=== PATIENT | male | born 2000 | race Hispanic/Latino ===

== ENCOUNTER 2018-04-11 14:33 | Observation (INO) | payer SELFPAY ==
[~2018-04-11 14:33] MED LIST: Dexamethasone 20 MG/5 ML VIAL ONE; Glycopyrrolate 0.2 MG/ML 5 ML SYRINGE ONE; Ketorolac Tromethamine 30 MG/ML VIAL ONE; Lidocaine 1% PF 5 ML VIAL ONE; Ondansetron PF 4 MG/2 ML Vial ONE; PROPOFOL 200 MG/20 ML VIAL ONE; Succinylcholine Chloride 20 MG/ML 10 ml SYRINGE FS ONE
[2018-04-11] MEDS ORDERED: Dicyclomine 20 MG TAB ONE (15:02)
[2018-04-11 15:06] LABS: #Eosinphils 0.1 thou/uL (0.0-0.7); #Lymphocytes 1.2 thou/uL (1.20-3.40); #Monocytes 0.4 thou/uL (0.11-0.59); %Basophils 0.2 % (0.0-1.0); %Eosinophils 0.4 % (0.0-10.0); %Lymphocytes 7.4 % (28.0-48.0); %Monocytes 2.3 % (0.0-4.0); %Neutrophils 89.7 % (31.0-61.0); Hemoglobin 17.2 g/dL (14.0-18.0); Mean Corpuscular HGB CONC 32.5 g/dL (32.0-36.0); Mean Corpuscular Volume 86.2 fL (78.0-98.0); Mean Platelet Volume 7.2 fL (7.4-10.4); Platelet Count 278 thou/uL (130-400); RBC Distribution Width 12.9 % (11.5-14.5); Red Blood Cell (RBC) Count 6.13 mill/uL (4.00-5.20); White Blood Cell (WBC) Count 16.7 thou/uL (4.8-10.8)
[2018-04-11 15:24] LABS: ALT (SGPT) 33 U/L (8-55); AST (SGOT) 26 U/L (10-45); Albumin 4.3 g/dL (3.5-5.0); Alkaline Phosphatase 90 U/L (Less than 750); Anion Gap 17 mmol/L (10-20); BUN (Urea Nitrogen) 9 mg/dL (8.4-21.0); Bilirubin, Total 0.4 mg/dL (0.2-1.2); Calc. Creatinine Clearance 0 mL/min (70-130); Calcium 9.7 mg/dL (7.8-10.44); Carbon Dioxide 20 mmol/L (22-29); Chloride 103 mmol/L (98-107); Estimated GFR-MDRD Greater than 90; Globulin 3.3 g/dL (2.4-3.5); Glucose 110 mg/dL (70-105); Lipase 29 U/L (8-78); Protein, Total 7.6 g/dL (6.0-8.3); Sodium 136 mmol/L (136-145)
[2018-04-11] MEDS ORDERED: Ondansetron PF 4 MG/2 ML Vial ONE (15:46)
--- NOTE | 2018-04-11 16:00 | CT ---
CT ABDOMEN AND PELVIS WITH IV CONTRAST: Date: 04/11/18 HISTORY: 17-year-old male with abdominal pain FINDINGS: The lung bases are clear. The liver demonstrates decreased attenuation compared to the spleen consistent with fatty infiltratio n. No calcified gallstones are seen. The spleen, pancreas, adrenal glands, and kidneys are normal. No free air, free fluid, or lymphadenopathy identified. The small bowel loops are not abnormally dilate d. The appendix is abnormally dilated and fluid filled, without significant periappendiceal inflammat ory changes. IMPRESSION: Findings are suspicious for early appendicitis. Discussed over the telephone with ER physician, Dr. Dario Roldan, at 1552 hours. CODE CR.
[2018-04-11] MEDS ORDERED: Morphine 2 MG/ML SYRINGE ONE (16:09)
[2018-04-11] MEDS ORDERED: Piperacillin/Tazobactam 4.5 GM VIAL ONE (16:09)
[2018-04-11] MEDS ORDERED: hydrALAZINE 20 MG/ML VIAL SLOW IVP PRN (16:21)
[2018-04-11] MEDS ORDERED: Morphine 2 MG/ML SYRINGE SLOW IVP PRN (16:21)
[2018-04-11] MEDS ORDERED: Ondansetron PF 4 MG/2 ML Vial IVP PRN (16:21)
[2018-04-11] MEDS ORDERED: Promethazine HCl 25 MG/ML VIAL IM PRN (16:21)
[2018-04-11] MEDS ORDERED: Dextrose 50% Abboject 50 ML SYRINGE SLOW IVP PRN (16:21)
[2018-04-11] MEDS ORDERED: Dextrose 5% in Water 1,000 ML IV PRN (16:21)
[2018-04-11] MEDS ORDERED: Sodium Chloride 0.9% 1,000 ML IV SCH (16:30)
[2018-04-11 16:34] LABS: Bilirubin Negative (Negative); Blood, Urine Negative (Negative); Clarity CLEAR (Clear); Glucose, Urine (Dipstick) Negative (Negative); Leukocyte Negative (Negative); Nitrite Negative (Negative); Protein, Urine (Dipstick) Negative (Neg-Trace); Urobilinogen 0.2 mg/dL (0.2-1.0); pH, Urine 5.5 (5.0-9.0)
[2018-04-11 16:37] LABS: Specific Gravity, Urine 1.054 (1.002-1.036)
[2018-04-11] MEDS ORDERED: ISOVUE-370 76%-LOCM 1 ML ONE (16:42)
[2018-04-11] MEDS ORDERED: Acetaminophen 325 MG TAB PO SCH (17:00)
[2018-04-11] MEDS ORDERED: Ketorolac Tromethamine 30 MG/ML VIAL IVP SCH (18:00)
[2018-04-11] MEDS ORDERED: Bupivacaine/Epinephrine 0.25% 30 ML VIAL ONE (18:27)
[2018-04-11] MEDS ORDERED: Midazolam HCl 2 mg/2 ml Vial ONE (18:45)
[2018-04-11] MEDS ORDERED: Fentanyl 100 MCG/2 ML VIAL ONE ×3 (18:50→20:40)
--- NOTE | 2018-04-11 20:27 | HP-2 ---
DATE OF ADMISSION: 04/11/2018 Referred by the Emergency Department. SURGERY ATTENDING: Sandro Cardona D.O. REASON FOR ADMISSION: Concern for acute appendicitis. HISTORY OF PRESENT ILLNESS: Mr. Salgado is a 17-year-old male with a past medical history of childhood asthma who presented to the Emergency Department today with a 1-day history of abdominal pain, periumbilical and right lower quadrant abdominal pain associated with nausea, vomiting and diarrhea x2 days. The patient denies any sick contacts, denies any preceding symptoms and never had this complication in the past. In the Emergency Department, the patient was found to have a leukocytosis with a leftward shift. CT evidence of possible early appendicitis with dilated appendix, fluid filled. No evidence of peritonitis or free air noted on CT. The patient was given IV fluids, pain control and Zosyn and we are consulted to admit for possible operative management. I have seen the patient in the Emergency Department. Chief complaint is abdominal pain. The pain is more controlled than when he first arrived. The patient denies any chest pain, shortness of air, headache, fever or rashes. The patient states he has nonbloody, nonbilious vomiting earlier today and diarrhea. The patient has not had any previous abdominal surgeries. He has not taken any other medications and his last oral intake was last night. He has no dysuria and no testicular pain. REVIEW OF SYSTEMS: Pertinent positive and negative per HPI, otherwise 12-point review of systems is regarded as negative. PAST MEDICAL HISTORY: Childhood asthma, currently resolved. PAST SURGICAL HISTORY: Denies. CURRENT MEDICATIONS: Denies. ALLERGIES: No known drug allergies. FAMILY HISTORY: Significant for diabetes and hypertension both maternally and paternally. SOCIAL HISTORY: The patient is currently unemployed. He has a high school education. He lives in [place] with his sister. He smokes cigarettes daily, occasionally uses alcohol and denies any other illicit drug use. PHYSICAL EXAMINATION: VITAL SIGNS: Blood pressure is 151/88, temperature is 97.4, heart rate is 58, respiratory rate is 18, he is satting 98% on room air. GENERAL: This is a 17-year-old male, lying in bed in the recumbent position in slight abdominal pain. Nontoxic appearing. HEENT: Normocephalic, atraumatic. Trachea is midline. NECK: No JVD is appreciated. RESPIRATORY: Equal rise and fall. Bilateral breath sounds clear to auscultation upper and lower bilaterally. No rubs or wheezes appreciated. CARDIOVASCULAR: Regular rate and rhythm. No murmurs. Strong pulses and no edema. ABDOMEN: Obese. He has a slight tenderness to palpation of the right lower quadrant. No tenderness in any of the other quadrants. He has no peritoneal signs, no guarding, no masses. No syl rigidity is appreciated. He does have rebound tenderness appreciated. GENITOURINARY: Deferred. MUSCULOSKELETAL: Moves all extremities well. No deformities. SKIN: [place], warm and dry. PSYCHIATRIC: Normal mood and affect. NEUROLOGIC: Alert and oriented to person, place, time and event. LABORATORY DATA: Today, white blood cell count of 16.7, platelets of 278,000, hemoglobin and hematocrit of 17.2 and 52.9 respectively with a neutrophil predominance of 89.7%. Chemistry, sodium is 136, potassium 4.0, chloride is 103 , carbon dioxide is 20, BUN is 9, creatinine 0.84, glucose is 110, total bilirubin is 0.4. AST and ALT 26 and 33 respectively. Alkaline phosphatase is 90. Lipase is 29. Urine is yellow and clear with a high specific gravity. No leukocyte esterase, nitrite, blood or ketones. CT abdomen and pelvis demonstrates possible early appendicitis with dilated fluid-filled appendix. ASSESSMENT: 1. Likely acute appendicitis. 2. Abdominal pain. 3. Leukocytosis, likely secondary to acute appendicitis. 4. Tobacco abuse. 5. Obesity. PLAN: 1. Keep the patient n.p.o. 2. Pain control as needed. 3. Admit to the OR and then observe on the surgery [place]. 4. Continue Zosyn for now. 5. Consent for appendectomy has been signed at the bedside. I have discussed the risks and benefits of both and the patient agrees to go ahead with surgery if needed. Diet will be n.p.o. except for medications. 6. Activity: Up with assistance only. 7. Full code. 8. Access: Peripheral IVs. 9. Prophylaxis will be famotidine, SCDs and start DVT prophylaxis as needed postoperatively. DISPOSITION: Will be OR and then the surgery michaud. I have coordinated care with the Emergency Department physician and the ER team. I have updated Mrs. Salgado and answered all questions at the bedside. This plan will be discussed with Dr. Cardona and can be updated as needed. WILSON
[2018-04-11] MEDS ORDERED: Famotidine/PF 20 mg/2ml Vial SLOW IVP SCH (21:00)
[2018-04-11] MEDS ORDERED: Famotidine 20 MG TAB PO SCH (21:00)
[2018-04-11] MEDS ORDERED: HYDROcodone/Acetaminophen 5/325 mg Tablet ONE (21:35)
--- NOTE | 2018-04-11 23:21 | OP ---
DATE OF PROCEDURE: 04/11/2018 PREOPERATIVE DIAGNOSIS: Acute appendicitis. POSTOPERATIVE DIAGNOSIS: Acute appendicitis. PROCEDURE PERFORMED: Laparoscopic appendectomy. SURGEON: Sandro Cardona D.O. ANESTHESIA: General endotracheal. ESTIMATED BLOOD LOSS: 20 mL. FLUIDS GIVEN: 1000 mL crystalloids. SPONGE AND INSTRUMENT COUNT: Certified as correct x2. COMPLICATIONS: None apparent at the time of operation. INDICATIONS FOR PROCEDURE: This is a 17-year-old man presented with a 1-day history of righ t lower quadrant abdominal pain. Clinical and radiographic examination was consistent with acute joesph endicitis for which the patient was brought to the operating room for appendectomy. Findings are con sistent with acute appendicitis with microperforation and a small amount of purulent pus at the base of the appendix. DESCRIPTION OF PROCEDURE: Informed consent obtained from the patient who was brought to the operatin g room and placed in supine position. Following general anesthesia, abdomen was sterilely prepped an d draped in usual fashion. Skin below the umbilicus was infiltrated with 0.25% Marcaine with epineph rine. A small curvilinear infraumbilical incision was made using an 11 scalpel. Umbilical stalk gra sped with Jacqueline's and elevated. Veress needle inserted through the incision and placed in the perit renteria cavity through which the abdomen was insufflated with 3 liters of CO2 gas. Intraabdominal pres sure noted at 2 mmHg. Following abdominal insufflation, Veress needle was removed and replaced with a 5-mm trocar introduced using the Visiport. Laparoscopy confirmed proper placement of the port, no injuries to underlying structures. Additional laparoscopy reveals the right lower quadrant partially encased by omental adhesions. Under direct laparoscopy, a 5-mm suprapubic and a 12-mm left lower qu adrant ports were placed after the overlying skin were infiltrated with 0.25% Marcaine with epinephri ne and appropriate incision was made. The patient was placed in Trendelenburg position, rotated to h is left. I introduced a Prestige grasper through the left lower quadrant port using this to bluntly take down omental adhesions to reveal dilated suppurative appendix in the usual anatomic location. I introduced Endo Vermillion forceps through the suprapubic port site grasping the appendix which was claudia vated. It was noted that there was a tiny perforation at the base of the appendix with scant amount of purulent pus at the base. Under direct laparoscopy, I used a [place] dissector to create a rent through the mesoappendix at the base. Through this, Endo-ANKIT with a blue load was introduced dividin g the appendix at the appendical cecal junction. Using a white load of the Endo-ANKIT, the mesoappendi x was divided at the base with good hemostasis. Appendix was delivered off the abdominal cavity usin g an EndoCatch. Operative site was inspected. Minor ooze over the staple line was readily controlle d using a 1 x 2 inch piece of fibula. Left lower quadrant port fascia was closed using 0 Vicryl sutu re and Endo closure device under laparoscopy. Abdomen was desufflated. The remainder of the ports a nd instruments removed and accounted for. Skin incisions closed using 4-0 Monocryl suture in subcuti cular fashion. Dermabond was applied over the incisional closure. The patient tolerated the operati on without any apparent complication and was returned to recovery room in satisfactory condition.
[2018-04-11] MEDS ORDERED: Piperacillin/Tazobactam 3.375 GM in Sodium Chloride 0.9% 100 ML IVPB SCH (23:59)
== END 2018-04-11 21:45 | disposition home or self-care (01) ==
LOC: ERS 14:33 → SDC 17:33 → 3SE 19:35 → SURG A 21:27
PROVIDERS: ADMIT Surgery; ATTEND Surgery
PROC: 0DTJ4ZZ Resection of Appendix, Percutaneous Endoscopic Approach (ICD-10-PCS; principal; 2018-04-11)
DX: K35.33 Acute appendicitis with perforation, localized peritonitis, and gangrene, with abscess (principal); F17.210 Nicotine dependence, cigarettes, uncomplicated; D72.829 Elevated white blood cell count, unspecified; E66.9 Obesity, unspecified; J45.909 Unspecified asthma, uncomplicated
CPT/HCPCS: 36415; 74177; 80053; 81003; 83690; 85025; 88304; 96361; 96365; 96374; 96375; G0378; J1100; J1885; J2001; J2250; J2270; J2405; J2543; J2704; J3010

== ENCOUNTER 2018-04-18 14:53 | Inpatient (IN) | payer SELFPAY ==
[~2018-04-18 14:53] MED LIST changes: -Dexamethasone 20 MG/5 ML VIAL ONE; -Glycopyrrolate 0.2 MG/ML 5 ML SYRINGE ONE; +ISOVUE-370 76%-LOCM 1 ML ONE; -Ketorolac Tromethamine 30 MG/ML VIAL ONE; -Lidocaine 1% PF 5 ML VIAL ONE; -Ondansetron PF 4 MG/2 ML Vial ONE; -PROPOFOL 200 MG/20 ML VIAL ONE; -Succinylcholine Chloride 20 MG/ML 10 ml SYRINGE FS ONE
[2018-04-18 15:39] LABS: #Eosinphils 0.2 thou/uL (0.0-0.7); #Lymphocytes 1.8 thou/uL (1.20-3.40); #Monocytes 1.6 thou/uL (0.11-0.59); #Neutrophils 12.4 thou/uL (1.40-6.50); %Basophils 0.3 % (0.0-1.0); %Neutrophils 77.8 % (31.0-61.0); Mean Corpuscular HGB CONC 32.4 g/dL (32.0-36.0); Mean Corpuscular Hemoglobin 27.8 pg (25.0-35.0); Mean Corpuscular Volume 85.9 fL (78.0-98.0); Mean Platelet Volume 6.9 fL (7.4-10.4); Platelet Count 388 thou/uL (130-400); RBC Distribution Width 12.3 % (11.5-14.5); Red Blood Cell (RBC) Count 5.75 mill/uL (4.00-5.20); White Blood Cell (WBC) Count 15.9 thou/uL (4.8-10.8)
[2018-04-18 15:59] LABS: ALT (SGPT) 36 U/L (8-55); AST (SGOT) 30 U/L (10-45); Albumin 3.9 g/dL (3.5-5.0); Alkaline Phosphatase 137 U/L (Less than 750); Anion Gap 13 mmol/L (10-20); BUN (Urea Nitrogen) 10 mg/dL (8.4-21.0); Bilirubin, Total 0.4 mg/dL (0.2-1.2); Calc. Creatinine Clearance 0 mL/min (70-130); Calcium 9.9 mg/dL (7.8-10.44); Carbon Dioxide 27 mmol/L (22-29); Chloride 101 mmol/L (98-107); Estimated GFR-MDRD Greater than 90; Globulin 4.1 g/dL (2.4-3.5); Glucose 94 mg/dL (70-105); Potassium 4.3 mmol/L (3.5-5.1); Sodium 137 mmol/L (136-145)
[2018-04-18] MEDS ORDERED: Acetaminophen 1,000 MG in Premix Bag 1 BAG IVPB SCH (16:15)
[2018-04-18] MEDS ORDERED: Azithromycin 250 MG TAB ONE (16:24)
[2018-04-18] MEDS ORDERED: cefTRIAXone\\ROCEPHIN 250 MG VIAL ONE (16:24)
[2018-04-18 16:35] LABS: Bilirubin Negative (Negative); Blood, Urine Negative (Negative); Clarity CLEAR (Clear); Glucose, Urine (Dipstick) Negative (Negative); Leukocyte Negative (Negative); Nitrite Negative (Negative); Protein, Urine (Dipstick) Trace mg/dL (Neg-Trace); Specific Gravity, Urine 1.034 (1.002-1.036); pH, Urine 6.5 (5.0-9.0)
[2018-04-18] MEDS ORDERED: Piperacillin/Tazobactam 4.5 GM VIAL ONE (17:32)
[2018-04-18] MEDS ORDERED: Lidocaine 1% w/Epinephrine 1:100K 20 ML VIAL ONE (18:45)
[2018-04-18] MEDS ORDERED: traMADol HCl 50 MG TAB PO PRN (18:46)
[2018-04-18] MEDS ORDERED: Dextrose 50% Abboject 50 ML SYRINGE SLOW IVP PRN (18:47)
[2018-04-18] MEDS ORDERED: Ondansetron ODT 4 MG TAB PO PRN (18:47)
[2018-04-18] MEDS ORDERED: Ondansetron PF 4 MG/2 ML Vial IVP PRN (18:47)
[2018-04-18] MEDS ORDERED: Dextrose 5% in Water 1,000 ML IV PRN (18:47)
[2018-04-18 19:33] LABS: INR-International Normal Ratio 1.1; Prothrombin Time 13.9 SEC (12.0-14.7)
[2018-04-18 19:34] LABS: PTT 34.3 SEC (22.9-36.1)
[2018-04-18] MEDS ORDERED: Midazolam HCl 2 mg/2 ml Vial ONE (19:38)
[2018-04-18] MEDS ORDERED: Fentanyl 100 MCG/2 ML VIAL ONE (19:39)
[2018-04-18] MEDS ORDERED: Sodium Bicarbonate 2.5 MEQ/5 ML VIAL ONE (19:39)
--- NOTE | 2018-04-18 20:15 | CT ---
CT ABDOMEN AND PELVIS WITH IV CONTRAST 04/18/18 HISTORY: Right lower quadrant abdominal pain and fever. Patient had appendectomy last week. FINDINGS: The lung bases are clear. The liver, spleen, pancreas, adrenal gland and kidneys are normal. No calci fied gallstones are seen. There is free intraperitoneal air. There is also air in the umbilicus and the left lower anterior abd ominal wall likely from recent surgery. There is a soft tissue mass-like density in the subcutaneous fat of the left lower abdomen also likely due to postop change (hematoma). There is a fluid collection with some air in the right lower quadrant in close association with the c ecum and surgical sutures measuring 3.5 x 3.8 x 5 cm. No peripheral enhancement is seen. IMPRESSION: 1. Fluid collection in the right lower quadrant. Phlegmon versus developing abscess. This is no t amenable to percutaneous drainage due to its size and close association with adjacent bowel. 2. Postop changes in the abdomen. 3. Pneumoperitoneum. This may be due to recent surgery. However, possibility of bowel perforatio n cannot be excluded. Clinical correlation is recommended. Discussed over the telephone with ER physician, Dr. Brigitte Plunkett at 5:15 p.m. POS: [facility]
--- NOTE | 2018-04-18 21:20 | CT ---
CT GUIDED ASPIRATION OF RIGHT LOWER QUADRANT FLUID COLLECTION: 04/18/2018 HISTORY: Recent appendectomy with fever and right lower quadrant fluid collection, concerning for pericecal ab scess. COMPARISON: CT examination from 04/18/2018. FINDINGS: Informed consent was obtained prior to the procedure. Preprocedural CT examination of the mid and lower abdomen re-identifies an ill-defined fluid collecti on, abutting the inferomedial aspect of the cecum, just below a postoperative suture line within the right lower quadrant. It has an ill-defined anterior wall and adjacent extraluminal gas is noted. T his fluid collection measures approximately 2.7 x 3.2 cm. There is free intraperitoneal gas noted, a nteriorly, as seen on preprocedural CT, performed earlier on 04/18/2018. There is evidence of recent I and D of the subcutaneous fat in the left anterior abdomen. The right lower quadrant is prepped and draped in the normal sterile fashion and anesthetized with 1% buffered Lidocaine. The patient received conscious sedation during this examination, which included intravenous Versed 2 mg and intravenous fentanyl 50 mcg. The patient was monitored continuously during the procedure by a member of the division of the radiology nursing staff. With intermittent CT guidance, a 5 Uzbek Yueh catheter was advanced into the right lower quadrant fl uid collection, and aspiration yielded 30 mL of thick, yellow, purulent material. The Yueh catheter was then removed and, post procedural CT examination demonstrates near complete resolution of the flu id collection. The patient tolerated the procedure well. No post procedural complications occurred. A sample of th e aspirated fluid was sent to the laboratory for Gram's stain and culture. IMPRESSION: Successful CT guided aspiration of right lower quadrant abscess, as detailed above. POS: [facility]
[2018-04-18 21:28] VITALS: BMI 40.4
[2018-04-18] MEDS: Acetaminophen 500 MG TAB PO SCH (21:52)
--- NOTE | 2018-04-18 22:37 | HP ---
DATE OF ADMISSION: 04/18/2018 ATTENDING SURGEON: Sandro Cardona DO HISTORY OF PRESENT ILLNESS: This is a 17-year-old male who presented to [facility] wi a chief complaint of subjective fevers and abdominal pain. The patient recently underwent laparos copic appendectomy on 04/11/2018. He was doing well postoperatively until approximately 3-4 days ago , when he noticed swelling and erythema of his left lower quadrant site. Pain began to worsen and he noticed what he felt were fevers, although he did not measure his temperature. He was seen and eval uated in the emergency room and found to have a left lower quadrant abdominal wall and an intra-abdom inal abscess. We were asked to see and evaluate the patient. Upon my evaluation, he has a chief com plaint of left lower quadrant pain worsened with movement and improved with rest and pain medication. ALLERGIES: None. HOME MEDICATIONS: None. CHRONIC MEDICAL ILLNESSES: The patient denies. SURGICAL HISTORY: Appendectomy, 04/2018. SOCIAL HISTORY: The patient is unemployed. Endorses occasional alcohol and occasional tobacco use. Denies illicit drug use. FAMILY HISTORY: Significant for father and a mother with diabetes. REVIEW OF SYSTEMS: A 10-point review of systems was performed and essentially negative except as ind icated in the HPI. PHYSICAL EXAMINATION: VITAL SIGNS: On evaluation, blood pressure 118/73, pulse 89, temperature 100.1, respirations 19, O2 sat 99% on room air, pain 6/10. GENERAL: Well-developed young male in no acute distress, resting in bed. HEAD: Normocephalic, atraumatic. EYES: Pupils are PERRL. Extraocular movements are intact. NECK: Supple. Trachea is midline. CHEST: Atraumatic. Normal work of breathing, symmetric rise. LUNGS: Clear to auscultation bilaterally. CARDIOVASCULAR: Regular rate and rhythm. No obvious murmurs, rubs, or gallops. GASTROINTESTINAL: Soft with tenderness to the left lower quadrant. There is a large erythematous ar ea of swelling of the left lower quadrant surgical site with evidence of fluctuance. There is mild b ruising on the right lower quadrant. MUSCULOSKELETAL: Moves all extremities x4. Strength is 5/5. NEUROLOGIC: No focal deficit is noted. LABORATORY DATA: WBC 15.9, hemoglobin 16, hematocrit 49.4, platelet count 388. Sodium 137, potassiu m 4.3, chloride 101, carbon dioxide 27, BUN 10, creatinine 0.81, glucose 94, lactic acid 1. AST and ALT within normal limits. Urinalysis was unremarkable. RADIOGRAPHIC FINDINGS: CT of the abdomen and pelvis, official read is pending. There is a large lef t lower quadrant abdominal wall abscess as well as an intra-abdominal right lower quadrant abscess. ASSESSMENT: 1. Sepsis secondary to intraabdominal and abdominal wall abscess, status post laparoscopic appendect shell with microperforated appendicitis. 2. Abdominal pain secondary to above. PLAN: Admit to surgical services with IV antibiotics. Dr. Cardona will drain abdominal wall abscess a t bedside. Radiology has been contacted for aspiration and drainage of intra-abdominal abscess. A.M . labs. Pain management with p.o. analgesics. Plan for admission was discussed with the patient at bedside and all questions were answered at the time of this dictation. The patient has been seen and evaluated with Dr. Cardona, who agrees with my assessment and plan.
[2018-04-18] MEDS: Ibuprofen 600 MG TAB PO SCH (22:59)
[2018-04-18] MEDS: traMADol HCl 50 MG TAB PO SCH (23:01)
[2018-04-18] MEDS: Vancomycin HCl 1.75 GM in Sodium Chloride 0.9% 500 ML IVPB SCH (23:02)
[2018-04-19] MEDS ORDERED: Piperacillin/Tazobactam 4.5 GM in Sodium Chloride 0.9% 100 ML IVPB SCH (02:00)
[2018-04-19] MEDS: Acetaminophen 500 MG TAB PO SCH ×3 (02:55→15:10)
[2018-04-19 05:28] LABS: #Eosinphils 0.2 thou/uL (0.0-0.7); #Lymphocytes 1.9 thou/uL (1.20-3.40); %Basophils 0.3 % (0.0-1.0); %Eosinophils 1.5 % (0.0-10.0); %Lymphocytes 15.7 % (28.0-48.0); %Monocytes 8.5 % (0.0-4.0); Hemoglobin 13.5 g/dL (14.0-18.0); Mean Corpuscular HGB CONC 32.8 g/dL (32.0-36.0); Mean Corpuscular Hemoglobin 27.7 pg (25.0-35.0); Mean Corpuscular Volume 84.5 fL (78.0-98.0); Platelet Count 358 thou/uL (130-400); RBC Distribution Width 12.2 % (11.5-14.5); Red Blood Cell (RBC) Count 4.87 mill/uL (4.00-5.20); White Blood Cell (WBC) Count 12.1 thou/uL (4.8-10.8)
[2018-04-19 05:42] LABS: Anion Gap 10 mmol/L (10-20); BUN (Urea Nitrogen) 11 mg/dL (8.4-21.0); Calc. Creatinine Clearance 232 mL/min (70-130); Calcium 9.3 mg/dL (7.8-10.44); Carbon Dioxide 29 mmol/L (22-29); Chloride 105 mmol/L (98-107); Estimated GFR-MDRD Greater than 90; Glucose 116 mg/dL (70-105); Magnesium 2.1 mg/dL (1.7-2.2); Phosphorus 4.4 mg/dL (2.3-4.7); Potassium 4.2 mmol/L (3.5-5.1); Sodium 140 mmol/L (136-145)
[2018-04-19] MEDS: Ibuprofen 600 MG TAB PO SCH ×2 (06:12→15:10)
[2018-04-19] MEDS: traMADol HCl 50 MG TAB PO SCH ×2 (06:12→11:23)
[2018-04-19] MEDS: Vancomycin HCl 1.75 GM in Sodium Chloride 0.9% 500 ML IVPB SCH (08:00)
[2018-04-19 13:45] VITALS: BP 109/69; TEMP 98.1
[2018-04-19] MEDS ORDERED: metroNIDAZOLE 500 MG TAB PO SCH (15:00)
[2018-04-19] MEDS ORDERED: Cipro 250 MG TAB PO SCH (20:00)
--- NOTE | 2018-04-19 22:02 | DIS ---
DATE OF ADMISSION: 04/18/2018 DATE OF DISCHARGE: 04/19/2018 ADMISSION DIAGNOSES: 1. Intra-abdominal and abdominal wall abscess, status post laparoscopic appendectomy with micro perf orated appendicitis. 2. Abdominal pain secondary to above. DISCHARGE DIAGNOSES: 1. Intra-abdominal and abdominal wall abscess, status post laparoscopic appendectomy with micro perf orated appendicitis. 2. Abdominal pain secondary to above. CONSULTANTS: None. PROCEDURES: Bedside incision and drainage of left lower quadrant abdominal wall abscess with Dr. Jaime cali on 04/18/[address]-guided aspiration of intra-abdominal abscess with Interventional Radiology on 04/18/2018. HOSPITAL COURSE: Mr. Jesus Salgado is a 17-year-old male who presented to [facility] approximately 1 week status post laparoscopic appendectomy for increasing left lower quadrant abdomin al pain, swelling, and erythema of his incisional port. Patient had additionally reported subjective fevers. He was evaluated in the emergency room and found to have a left lower quadrant abdominal wa ll abscess and right lower quadrant intra-abdominal abscess. The left lower quadrant abscess was christiano alan at bedside with Dr. Cardona and the intra-abdominal abscess was drained by Radiology on 04/18/2018 . The patient received a short course of intravenous antibiotics. He was afebrile overnight. Pain was controlled with p.o. analgesics. He was started on oral antibiotics and medically stable for dis charge on 04/19/2018. DISCHARGE DISPOSITION: Home. DISCHARGE CONDITION: Good. PHYSICAL EXAMINATION: VITAL SIGNS: Temperature 98.1, pulse 59, respirations 16, O2 sat 99% on room air, blood pressure 109 /69. GENERAL: Young male in no acute distress, resting in bed. PULMONARY: Normal work of breathing, symmetric rise. CARDIOVASCULAR: Regular rate and rhythm. GASTROINTESTINAL: Abdomen is soft. Left lower quadrant abscess site packing was removed and replace d by Dr. Cardona with wound care teaching given to the patient. MUSCULOSKELETAL: Moves all extremities x4. NEUROLOGIC: No focal deficit is noted. LABORATORY DATA: Abdominal wall abscess with gram negative rods, gram positive cocci in pairs and ch ains, WBC 12.1, hemoglobin 13.5, hematocrit 41.1 and platelet count 358. DISCHARGE INSTRUCTIONS: Discharge instructions were provided to the patient prior to discharge who v ocalized his understanding. He should change his wound packing and dressing daily. He was provided supplies to help facilitate that process. He should keep his wound clean and dry. He should continu e his entire course of antibiotics regardless of symptomatology. He should still refrain from liftin g greater than 20 pounds. FOLLOWUP APPOINTMENTS: Patient should follow up in our clinic on Saturday04/22/2018. DISCHARGE MEDICATIONS: Patient was discharged home on [id number] Tylenol and ibuprofen as well as a 10-day course of Cipro and Flagyl. He was provided an additional prescription for Ultram 50 mg 1 tab q.6 hours p.r.n. for severe breakthrough pain only #20. This is merely a summary of the david krueger's hospitalization. For more in depth information, please see his medical record in its entirety.
== END 2018-04-19 16:26 | disposition home or self-care (01) | DRG 862 ==
LOC: ERS 14:53 → MERGE 21:09 → SURG B 21:09
PROVIDERS: ADMIT Surgery; ATTEND Surgery
PROC: 0W9F3ZZ Drainage of Abdominal Wall, Percutaneous Approach (ICD-10-PCS; principal; 2018-04-18)
DX: T81.40XA Infection following a procedure, unspecified, initial encounter (principal); A41.51 Sepsis due to Escherichia coli [E. coli]; A41.81 Sepsis due to Enterococcus; L02.211 Cutaneous abscess of abdominal wall; T81.44XA Sepsis following a procedure, initial encounter
CPT/HCPCS: 36415; 74177; 77002; 77012; 80048; 80053; 81003; 83605; 83735; 84100; 85025; 85610; 85730; 87040; 87070; 87077; 87186; 87205; J0131; J0696; J2001; J2250; J2543; J3010; J3370; J7050